=== PATIENT | male | born 1975 | race American Indian/Alaskan Native ===

== ENCOUNTER 2020-09-19 20:49 | Inpatient (IN) | payer OTHER ==
--- NOTE | 2020-09-19 23:23 | Event Note ---
ED Screening Note ED Screening Note: tremors, shakes and nausea, vomiting, diarrhea began today occ abd pain +ETOH daily states he drinks two packs of 24 ounces of beer states last night he drank 6 of them states he last drank at 11 PM PMHx none no allergies to meds +marijuana never has been to rehab This initial assessment/diagnostic orders/clinical plan/treatment(s) is/are subject to change based on patients health status, clinical progression and re- assessment by fellow clinical providers in the ED. Further treatment and workup at subsequent clinical providers discretion. Patient/guardian urged not to elope from the ED as their condition may be serious if not clinically assessed and managed. Initial orders include: labs, UA, UDS
[2020-09-19 23:57] LABS: Bilirubin,Urine NEG (Negative); Blood,Urine SM (Negative); Color,Urine Amber (Yellow); Mucus,Urine 3+ /HPF
[2020-09-19 23:58] LABS: Amphetamine Screen,Urine PRESUMPTIVE NEGATIVE; Benzodiazepines Screen,Urine PRESUMPTIVE NEGATIVE; Cannabinoid Screen,Urine PRESUMPTIVE POSITIVE; Cocaine Screen,Urine PRESUMPTIVE NEGATIVE; Methadone Screen,Urine PRESUMPTIVE NEGATIVE; Opiate Screen,Urine PRESUMPTIVE NEGATIVE
[2020-09-20 00:17] LABS: Hematocrit 39.6 % (35.5-45.6); Hemoglobin 13.1 gm/dl (11.8-15.2); Mean Corpuscular HGB Conc 33 % (32-34); Mean Corpuscular Volume 85 fl (84-94); Platelet Count 108 K/mm3 (140-440); Red Blood Count 4.64 M/mm3 (3.65-5.03); Red Cell Distribution Width 13.8 % (13.2-15.2)
[2020-09-20 00:25] LABS: Alanine Aminotransferase 53 units/L (7-56); Albumin 4.4 g/dL (3.9-5); Blood Urea Nitrogen 5 mg/dL (9-20); Calcium 8.9 mg/dL (8.4-10.2); Hemolysis Index 3
[2020-09-20 00:27] LABS: BUN/Creatinine Ratio 10
[2020-09-20 01:24] LABS: Total Cells Counted 100
[2020-09-20 01:25] LABS: RBC Morphology Normal
[2020-09-20] MEDS ORDERED: SODIUM CHLORIDE 0.9% 1000 ML 1,000 ML IV ONE (03:12)
[2020-09-20] MEDS ORDERED: LORazepam 2 MG/ML VIAL IV PRN ×2 (03:12)
--- NOTE | 2020-09-20 03:17 | Emergency Department Report ---
ED Alcohol HPI - General Chief Complaint: Alcohol Stated Complaint: HANGOVER/TREMORS Time Seen by Provider: 09/19/20 23:21 Source: patient, EMS Mode of arrival: Ambulatory Limitations: No Limitations - History of Present Illness Initial Comments: Patient is a 45-year-old male who presents emergency room with complaints of alcohol withdrawal symptoms. Patient states he has not drank for 3 days. Patient states he drinks every day. Patient states he is feeling tremulous and anxious and shaky, muscle spasms. Patient states he is also having nausea and vomiting. Patient states his symptoms are better with rest. Patient states he is having difficulty controlling his symptoms. Patient states his symptoms are worse with exertion. Patient denies recent travel. Patient denies recent international travel. Patient denies exposure to the novel coronavirus. Patient denies sick contacts. Patient denies fever and chills. Patient denies cough. Patient denies diarrhea. Patient denies coming in contact with anybody with symptoms of the novel coronavirus. MD Complaint: alcohol withdrawal Time Since Last Drink: 3 -: days(s) Chronic Alcohol Use: Yes Previous Visits for Alcohol Intoxication?: Yes Recent Trauma: No Associated Symptoms: nausea, vomiting, tremors. denies: syncope, seizure, hematemesis, melena, depression, suicidality Treatments Prior to Arrival: none - Related Data Allergies Allergy/AdvReac Type Severity Reaction Status Date / Time No Known Allergies Allergy Unverified 09/20/20 03:17 ED Review of Systems ROS: Stated complaint: HANGOVER/TREMORS Other details as noted in HPI Constitutional: denies: chills, fever Eyes: denies: eye pain, eye discharge, vision change ENT: denies: ear pain, throat pain Respiratory: denies: cough, shortness of breath, wheezing Cardiovascular: denies: chest pain, palpitations Endocrine: no symptoms reported Gastrointestinal: denies: abdominal pain, nausea, diarrhea Genitourinary: denies: urgency, dysuria Musculoskeletal: denies: back pain, joint swelling, arthralgia Skin: denies: rash, lesions Neurological: denies: headache, weakness, paresthesias Psychiatric: as per HPI, anxiety. denies: depression Hematological/Lymphatic: denies: easy bleeding, easy bruising ED Past Medical Hx - Past Medical History Previous Medical History?: Yes Additional medical history: ETOH - Surgical History Past Surgical History?: No - Social History Smoking Status: Current Every Day Smoker Substance Use Type: Alcohol ED Physical Exam - General Limitations: No Limitations General appearance: alert, in no apparent distress - Head Head exam: Present: atraumatic, normocephalic - Eye Eye exam: Present: normal appearance - ENT ENT exam: Present: mucous membranes moist - Neck Neck exam: Present: normal inspection - Respiratory Respiratory exam: Present: normal lung sounds bilaterally. Absent: respiratory distress - Cardiovascular Cardiovascular Exam: Present: regular rate, normal rhythm. Absent: systolic murmur, diastolic murmur, rubs, gallop - GI/Abdominal GI/Abdominal exam: Present: soft, normal bowel sounds - Rectal Rectal exam: Present: deferred - Extremities Exam Extremities exam: Present: normal inspection - Back Exam Back exam: Present: normal inspection - Neurological Exam Neurological exam: Present: alert, oriented X3 - Psychiatric Psychiatric exam: Present: anxious - Skin Skin exam: Present: warm, dry, intact, normal color. Absent: rash ED Course Vital Signs 09/19/20 09/20/20 21:27 03:05 Temperature 99.0 F Pulse Rate 83 Respiratory 18 20 Rate Blood Pressure 144/95 O2 Sat by Pulse 98 Oximetry - Reevaluation(s) Reevaluation #1: Patient will be placed on a CIWA protocol. Patient appears to be tremulous. Patient appears to already be going through withdrawal. 09/20/20 03:17 Reevaluation #2: I discussed all results with patient. I discussed plan of care with patient. Patient agrees with plan of care and admission. Patient to be admitted to the hospitalist service. 09/20/20 04:59 - Consultations Consultation #1: Hospitalist consulted for admission. Hospitalist to admit patient. 09/20/20 04:59 ED Medical Decision Making - Lab Data Result diagrams: 09/19/20 23:41 09/19/20 23:41 - Medical Decision Making Patient is a 45-year-old male who presents emergency room with complaints of tremors and muscle spasms anxiety. Patient is a regular drinker. Patient consumes alcohol daily. Patient has not had alcohol for 2 to 3 days. Patient started on a CIWA protocol. Patient scored high on his first evaluation. Patient given Ativan. Patient had labs done which were essentially unremarkable. Patient's alcohol was negative. Patient admitted to the hospital service for further evaluation treatment. Critical care time documented due to the multiple reassessments, prolonged time at the bedside, interpretation of diagnostics and labs. - Differential Diagnosis Alcohol withdrawal, tremors, anxiety, muscle spasm Critical Care Time: Yes Critical care time in (mins) excluding proc time.: 35 Critical care attestation.: If time is entered above; I have spent that time in minutes in the direct care of this critically ill patient, excluding procedure time. Critical Care Time: 35 minutes ED Disposition Clinical Impression: AA (alcohol abuse), Tremor Alcohol withdrawal Qualifiers: Complication of substance-induced condition: uncomplicated Qualified Code(s): F10.230 - Alcohol dependence with withdrawal, uncomplicated Disposition: DC-09 OP ADMIT IP TO THIS HOSP Is pt being admited?: Yes Does the pt Need Aspirin: No Condition: Critical Time of Disposition: 04:53
[2020-09-20] MEDS: LORazepam 2 MG/ML VIAL IV PRN ×3 (03:27→22:17)
[2020-09-20] MEDS ORDERED: THIAMINE 100 MG, FOLIC ACID 1 MG, MULTIPLE VITAMIN INJ, ADULT 10 ML in SODIUM CHLORIDE ... IV ONE (03:45)
[2020-09-20] MEDS ORDERED: MAGNESIUM HYDROXIDE (MOM) ORAL LIQD UDC PO PRN (05:10)
[2020-09-20] MEDS ORDERED: ONDANSETRON 4 MG/2 ML INJ IV PRN (05:10)
--- NOTE | 2020-09-20 05:20 | History and Physical Report ---
History of Present Illness Date of examination: 09/20/20 Date of admission: 09/20/2020 Chief complaint: Alcohol withdrawal symptoms History of present illness: Patient is a 45-year-old -[place] male with known history of for alcohol abuse presenting in the emergency room today with complaints of alcohol withdrawal symptoms. He is known to drink alcohol on a daily basis. Patient last alcohol intake was about 3 days ago. Presents in the emergency room with tremors and appearing anxious and also having muscle spasms. Patient denies any fever or chills, no nausea vomiting, no abdominal pain, no headache or dizziness, no chest pain or shortness of breath. Work-up in the emergency room reveals elevated lipase level 170, AST of 104 otherwise all other labs were unremarkable. Patient is being admitted for alcohol withdrawal. He has been placed on CIWA protocol. Past History Past Medical History: No medical history Past Surgical History: No surgical history Social history: smoking (Current daily smoker), alcohol abuse Family history: no significant family history Medications and Allergies Allergies Allergy/AdvReac Type Severity Reaction Status Date / Time No Known Allergies Allergy Unverified 09/20/20 03:17 Active Meds: Active Medications Heparin Sodium (Porcine) (Heparin 5,000 Unit/1 Ml Vial) 5,000 unit SUB-Q Q8HR GAMAL Thiamine HCl 100 mg/ Folic Acid 1 mg/ Multivitamins/Minerals 10 ml/ Sodium Chloride 1,011.2 mls @ 250 mls/hr IV ONCE ONE Stop: 09/20/20 07:47 Last Admin: 09/20/20 04:03 Dose: 250 mls/hr Documented by: Sodium Chloride (Nacl 0.9% 1000 Ml) 1,000 mls @ 125 mls/hr IV DIRECT GAMAL Lorazepam (Lorazepam 2 Mg/Ml Vial) 2 mg IV Q1HR PRN PRN Reason: CIWA-Ar 8-15 Last Admin: 09/20/20 03:27 Dose: 2 mg Documented by: Lorazepam (Lorazepam 2 Mg/Ml Vial) 4 mg IV Q1HR PRN PRN Reason: CIWA-Ar 16-25 Lorazepam (Lorazepam 2 Mg/Ml Vial) 4 mg IV Q15MIN PRN PRN Reason: CIWA-Ar >25 Magnesium Hydroxide (Magnesium Hydroxide (Mom) Oral Liqd Udc) 30 ml PO Q4H PRN PRN Reason: Constipation Ondansetron HCl (Ondansetron 4 Mg/2 Ml Inj) 4 mg IV Q8H PRN PRN Reason: Nausea And Vomiting Sodium Chloride (Sodium Chloride 0.9% 10 Ml Flush Syringe) 10 ml IV BID GAMAL Sodium Chloride (Sodium Chloride 0.9% 10 Ml Flush Syringe) 10 ml IV PRN PRN PRN Reason: LINE FLUSH Review of Systems Constitutional: no fever, no chills Ears, nose, mouth and throat: no nasal congestion, no sore throat Cardiovascular: no chest pain, no palpitations Respiratory: no cough, no shortness of breath Gastrointestinal: no abdominal pain, no nausea, no vomiting, no diarrhea Genitourinary Male: no dysuria, no hematuria, no flank pain Musculoskeletal: no neck pain, no low back pain Integumentary: no rash, no pruritis Neurological: no headaches, no confusion Psychiatric: no anxiety, no depression Endocrine: no excessive thirst, no polydipsia, no polyuria, no nocturia Exam - Constitutional Vitals: Temp Pulse Resp BP Pulse Ox 99.0 F 83 20 144/95 98 09/19/20 21:27 09/19/20 21:27 09/20/20 03:05 09/19/20 21:27 09/19/20 21:27 General appearance: Present: no acute distress, well-nourished - EENT Eyes: Present: PERRL, EOM intact. Absent: scleral icterus ENT: hearing intact, clear oral mucosa, dentition normal - Neck Neck: Present: supple, normal ROM - Respiratory Respiratory effort: normal Respiratory: bilateral: CTA - Cardiovascular Rhythm: regular Heart Sounds: Present: S1 & S2. Absent: gallop, systolic murmur, diastolic murmur, rub, click - Extremities Extremities: no ischemia, pulses intact, pulses symmetrical, No edema, normal temperature, normal color, Full ROM Peripheral Pulses: within normal limits - Abdominal General gastrointestinal: Present: soft, non-tender, non-distended, normal bowel sounds. Absent: mass - Integumentary Integumentary: Present: clear, warm, dry. Absent: rash - Musculoskeletal Musculoskeletal: strength equal bilaterally - Psychiatric Psychiatric: appropriate mood/affect, intact judgment & insight, memory intact, cooperative - Neurologic Neurologic: CNII-XII intact, no focal deficits, moves all extremities, other (Appears anxious and tremulous) Results - Labs CBC & Chem 7: 09/19/20 23:41 09/19/20 23:41 Labs: Abnormal lab results 09/19/20 09/19/20 09/19/20 Range/Units 23:41 23:41 23:41 Plt Count 108 L (140-440) K/mm3 Monocytes % (Manual) 18.0 H (0.0-7.3) % Lymphocytes # (Manual) 1.0 L (1.2-5.4) K/mm3 Monocytes # (Manual) 0.9 H (0.0-0.8) K/mm3 Chloride 96.2 L (98-107) mmol/L BUN 5 L (9-20) mg/dL Creatinine 0.5 L (0.8-1.3) mg/dL Glucose 105 H (75-100) mg/dL AST 104 H (5-40) units/L Lipase 170 H (13-60) units/L Salicylates < 0.3 L (2.8-20.0) mg/dL Acetaminophen (10.0-30.0) ug/mL 09/19/20 Range/Units 23:41 Plt Count (140-440) K/mm3 Monocytes % (Manual) (0.0-7.3) % Lymphocytes # (Manual) (1.2-5.4) K/mm3 Monocytes # (Manual) (0.0-0.8) K/mm3 Chloride (98-107) mmol/L BUN (9-20) mg/dL Creatinine (0.8-1.3) mg/dL Glucose (75-100) mg/dL AST (5-40) units/L Lipase (13-60) units/L Salicylates (2.8-20.0) mg/dL Acetaminophen 5.0 L (10.0-30.0) ug/mL Assessment and Plan - Patient Problems (1) Alcohol withdrawal Current Visit: Yes Status: Acute Qualifiers: Complication of substance-induced condition: uncomplicated Qualified Code(s): F10.230 - Alcohol dependence with withdrawal, uncomplicated Plan to address problem: Patient placed on CIWA protocol He has been commenced on IV fluid and IV multivitamins with banana bag. (2) Liver enzyme elevation Current Visit: Yes Status: Acute Plan to address problem: Possibly secondary to the alcohol abuse. We will monitor liver enzymes. (3) Tobacco abuse Current Visit: Yes Status: Acute Plan to address problem: Patient counseled on quitting tobacco abuse. Will offer nicotine patch as needed. (4) DVT prophylaxis Current Visit: Yes Status: Acute Plan to address problem: Patient placed on subcutaneous heparin. (5) Full code status Current Visit: Yes Status: Acute
[2020-09-20] MEDS: HEPARIN 5,000 UNIT/1 ML VIAL SUB-Q SCH ×3 (06:23→22:17)
[2020-09-20] MEDS: SODIUM CHLORIDE 0.9% 1000 ML 1,000 ML IV SCH ×2 (06:23→22:16)
[2020-09-20] MEDS ORDERED: FOLIC ACID 1 MG in SODIUM CHLORIDE 0.9% 50 ML IV SCH (10:00)
--- NOTE | 2020-09-20 10:00 | Event Note ---
Date: 09/20/20 Patient seen and examined This is Second visit after midnight Patient is a 45-year-old -[place] male with known history of for alcohol abuse presenting in the emergency room with complaints of alcohol withdrawal symptoms. Work-up in the emergency room reveals elevated lipase level 170, AST of 104 otherwise all other labs were unremarkable. Patient was admitted for alcohol withdrawal and acute pancreatitis. He has been placed on CIWA protocol. vitals stable, will transfer to telemetry Continue to follow clinically with supportive care
[2020-09-20] MEDS: THIAMINE 100 MG, FOLIC ACID 1 MG, MULTIPLE VITAMIN INJ, ADULT 10 ML in SODIUM CHLORIDE ... IV SCH (23:39)
[2020-09-21] MEDS: HEPARIN 5,000 UNIT/1 ML VIAL SUB-Q SCH ×3 (07:01→21:36)
[2020-09-21] MEDS: LORazepam 2 MG/ML VIAL IV PRN (09:13)
[2020-09-21 09:26] LABS: Basophils % (Auto) 0.3 % (0.0-1.8); Eosinophils % (Auto) 0.9 % (0.0-4.3); Hematocrit 32.7 % (35.5-45.6); Hemoglobin 10.5 gm/dl (11.8-15.2); Lymphocytes % (Auto) 30.4 % (13.4-35.0); Mean Corpuscular HGB Conc 32 % (32-34); Mean Corpuscular Volume 86 fl (84-94); Monocytes # (Auto) 0.5 K/mm3 (0.0-0.8); Monocytes % (Auto) 15.7 % (0.0-7.3); Platelet Count 114 K/mm3 (140-440); Red Cell Distribution Width 13.9 % (13.2-15.2)
[2020-09-21 09:33] LABS: Alanine Aminotransferase 28 units/L (7-56); Albumin 2.8 g/dL (3.9-5); Blood Urea Nitrogen 4 mg/dL (9-20); Calcium 7.8 mg/dL (8.4-10.2); Hemolysis Index 9
[2020-09-21 09:35] LABS: BUN/Creatinine Ratio 7; Bilirubin,Direct < 0.2 mg/dL (0-0.2)
[2020-09-21] MEDS: SODIUM CHLORIDE 0.9% 1000 ML 1,000 ML IV SCH (16:53)
--- NOTE | 2020-09-21 17:43 | Progress Note ---
Assessment and Plan Assessment and plan: 45-year-old -[place] male who presents with alcohol intoxication secondary to alcohol binging (1) Alcohol withdrawal Current Visit: Yes Status: Acute Qualifiers: Complication of substance-induced condition: uncomplicated Qualified Code(s): F10.230 - Alcohol dependence with withdrawal, uncomplicated Plan to address problem: Patient placed on CIWA protocol He has been commenced on IV fluid and IV multivitamins with banana bag. Patient has improved, physical therapy to see the patient for ataxic gait and imbalance (2) Liver enzyme elevation Current Visit: Yes Status: Acute Plan to address problem: Possibly secondary to the alcohol abuse. We will monitor liver enzymes. (3) Tobacco abuse Current Visit: Yes Status: Acute Plan to address problem: Patient counseled on quitting tobacco abuse. Nicotine patch (4) DVT prophylaxis Current Visit: Yes Status: Acute Plan to address problem: Patient placed on subcutaneous heparin. (5) Full code status Current Visit: Yes Status: Acute Disposition: Anticipate discharge within the next 24 hours History Interval history: 09/21/2020: Patient seen and examined, states that he is improved with fluids. Continues to have some ataxic gait. Patient can be moved to telemetry. Hospitalist Physical - Physical exam Narrative exam: General appearance no acute distress, well-nourished EENT: PERRL, EOM intact, hearing intact, clear oral mucosa, dentition normal Neck: Present: supple, normal ROM Respiratory: bilateral: CTA, negative: rales, rhonchi, wheezing Cardiovascular: Regular rate/rhythm, Normal S1 & S2. No gallop, rub Extremities: no ischemia, No edema, normal temperature, normal color, Full ROM Abdominal: soft, non-tender, non-distended, normal bowel sounds Integumentary: Present: clear, warm, dry Psychiatric: appropriate mood/affect, intact judgment & insight Neurologic: CNII-XII intact, moves all extremities, ataxic gait, minimal upper extremity tremors, no confusion - Constitutional Vitals: Temp Pulse Resp BP Pulse Ox 100.6 F H 71 24 163/98 99 09/21/20 16:00 09/21/20 17:30 09/21/20 17:30 09/21/20 17:30 09/21/20 17:30 General appearance: Present: no acute distress, well-nourished Results - Labs CBC & Chem 7: 09/21/20 08:55 09/21/20 08:55 Labs: Laboratory Last Values WBC 3.4 K/mm3 (4.5-11.0) L 09/21/20 08:55 RBC 3.80 M/mm3 (3.65-5.03) 09/21/20 08:55 Hgb 10.5 gm/dl (11.8-15.2) L 09/21/20 08:55 Hct 32.7 % (35.5-45.6) L D 09/21/20 08:55 MCV 86 fl (84-94) 09/21/20 08:55 MCH 28 pg (28-32) 09/21/20 08:55 MCHC 32 % (32-34) 09/21/20 08:55 RDW 13.9 % (13.2-15.2) 09/21/20 08:55 Plt Count 114 K/mm3 (140-440) L 09/21/20 08:55 Lymph % (Auto) 30.4 % (13.4-35.0) 09/21/20 08:55 [place] % (Auto) 15.7 % (0.0-7.3) H 09/21/20 08:55 Eos % (Auto) 0.9 % (0.0-4.3) 09/21/20 08:55 Baso % (Auto) 0.3 % (0.0-1.8) 09/21/20 08:55 Lymph # (Auto) 1.0 K/mm3 (1.2-5.4) L 09/21/20 08:55 [place] # (Auto) 0.5 K/mm3 (0.0-0.8) 09/21/20 08:55 Eos # (Auto) 0.0 K/mm3 (0.0-0.4) 09/21/20 08:55 Baso # (Auto) 0.0 K/mm3 (0.0-0.1) 09/21/20 08:55 Add Manual Diff Complete 09/19/20 23:41 Total Counted 100 09/19/20 23:41 Seg Neutrophils % 52.7 % (40.0-70.0) 09/21/20 08:55 Seg Neuts % (Manual) 62.0 % (40.0-70.0) 09/19/20 23:41 Lymphocytes % (Manual) 20.0 % (13.4-35.0) 09/19/20 23:41 Monocytes % (Manual) 18.0 % (0.0-7.3) H 09/19/20 23:41 Nucleated RBC % Not Reportable 09/19/20 23:41 Seg Neutrophils # 1.8 K/mm3 (1.8-7.7) 09/21/20 08:55 Seg Neutrophils # Man 3.0 K/mm3 (1.8-7.7) 09/19/20 23:41 Band Neutrophils # 0.0 K/mm3 09/19/20 23:41 Lymphocytes # (Manual) 1.0 K/mm3 (1.2-5.4) L 09/19/20 23:41 Abs React Lymphs (Man) 0.0 K/mm3 09/19/20 23:41 Monocytes # (Manual) 0.9 K/mm3 (0.0-0.8) H 09/19/20 23:41 Eosinophils # (Manual) 0.0 K/mm3 (0.0-0.4) 09/19/20 23:41 Basophils # (Manual) 0.0 K/mm3 (0.0-0.1) 09/19/20 23:41 Metamyelocytes # 0.0 K/mm3 09/19/20 23:41 Myelocytes # 0.0 K/mm3 09/19/20 23:41 Promyelocytes # 0.0 K/mm3 09/19/20 23:41 Blast Cells # 0.0 K/mm3 09/19/20 23:41 WBC Morphology Not Reportable 09/19/20 23:41 Hypersegmented Neuts Not Reportable 09/19/20 23:41 Hyposegmented Neuts Not Reportable 09/19/20 23:41 Hypogranular Neuts Not Reportable 09/19/20 23:41 Smudge Cells Not Reportable 09/19/20 23:41 Toxic Granulation Not Reportable 09/19/20 23:41 Toxic Vacuolation Not Reportable 09/19/20 23:41 Dohle Bodies Not Reportable 09/19/20 23:41 Pelger-Huet Anomaly Not Reportable 09/19/20 23:41 Fatuma Rods Not Reportable 09/19/20 23:41 Platelet Estimate Not Reportable 09/19/20 23:41 Clumped Platelets Not Reportable 09/19/20 23:41 Plt Clumps, EDTA Not Reportable 09/19/20 23:41 Large Platelets Not Reportable 09/19/20 23:41 Giant Platelets Not Reportable 09/19/20 23:41 Platelet Satelliting Not Reportable 09/19/20 23:41 Plt Morphology Comment Not Reportable 09/19/20 23:41 RBC Morphology Normal 09/19/20 23:41 Dimorphic RBCs Not Reportable 09/19/20 23:41 Polychromasia Not Reportable 09/19/20 23:41 Hypochromasia Not Reportable 09/19/20 23:41 Poikilocytosis Not Reportable 09/19/20 23:41 Anisocytosis Not Reportable 09/19/20 23:41 Microcytosis Not Reportable 09/19/20 23:41 Macrocytosis Not Reportable 09/19/20 23:41 Spherocytes Not Reportable 09/19/20 23:41 Pappenheimer Bodies Not Reportable 09/19/20 23:41 Sickle Cells Not Reportable 09/19/20 23:41 Target Cells Not Reportable 09/19/20 23:41 Tear Drop Cells Not Reportable 09/19/20 23:41 Ovalocytes Not Reportable 09/19/20 23:41 Helmet Cells Not Reportable 09/19/20 23:41 [place] Bodies Not Reportable 09/19/20 23:41 [place] Rings Not Reportable 09/19/20 23:41 [place] Cells Not Reportable 09/19/20 23:41 Bite Cells Not Reportable 09/19/20 23:41 Crenated Cell Not Reportable 09/19/20 23:41 Elliptocytes Not Reportable 09/19/20 23:41 Acanthocytes (Spur) Not Reportable 09/19/20 23:41 Rouleaux Not Reportable 09/19/20 23:41 Hemoglobin C Crystals Not Reportable 09/19/20 23:41 Schistocytes Not Reportable 09/19/20 23:41 Malaria parasites Not Reportable 09/19/20 23:41 Se Bodies Not Reportable 09/19/20 23:41 Hem Pathologist Commnt No 09/19/20 23:41 PT 13.0 Sec. (12.2-14.9) 09/21/20 08:55 INR 1.00 (0.87-1.13) 09/21/20 08:55 Sodium 136 mmol/L (137-145) L 09/21/20 08:55 Potassium 4.0 mmol/L (3.6-5.0) 09/21/20 08:55 Chloride 102.1 mmol/L (98-107) 09/21/20 08:55 Carbon Dioxide 26 mmol/L (22-30) 09/21/20 08:55 Anion Gap 12 mmol/L 09/21/20 08:55 BUN 4 mg/dL (9-20) L 09/21/20 08:55 Creatinine 0.6 mg/dL (0.8-1.3) L 09/21/20 08:55 Estimated GFR > 60 ml/min 09/21/20 08:55 BUN/Creatinine Ratio 7 % 09/21/20 08:55 Glucose 148 mg/dL (75-100) H 09/21/20 08:55 Calcium 7.8 mg/dL (8.4-10.2) L 09/21/20 08:55 Magnesium 1.70 mg/dL (1.7-2.3) 09/20/20 07:13 Total Bilirubin 0.20 mg/dL (0.1-1.2) 09/21/20 08:55 Direct Bilirubin < 0.2 mg/dL (0-0.2) 09/21/20 08:55 Indirect Bilirubin 0.0 mg/dL 09/21/20 08:55 AST 46 units/L (5-40) H 09/21/20 08:55 ALT 28 units/L (7-56) 09/21/20 08:55 Alkaline Phosphatase 71 units/L (35-129) 09/21/20 08:55 Total Creatine Kinase 137 units/L (55-170) 09/19/20 23:41 Total Protein 6.2 g/dL (6.3-8.2) L 09/21/20 08:55 Albumin 2.8 g/dL (3.9-5) L 09/21/20 08:55 Albumin/Globulin Ratio 0.8 % 09/21/20 08:55 Lipase 189 units/L (13-60) H 09/21/20 08:55 Urine Color [place]aitlyn (Yellow) 09/19/20 Unknown Urine Turbidity Slightly-cloudy (Clear) 09/19/20 Unknown Urine pH 5.0 (5.0-7.0) 09/19/20 Unknown Ur Specific [place] 1.026 (1.003-1.030) 09/19/20 Unknown Urine Protein 100 mg/dl mg/dL (Negative) 09/19/20 Unknown Urine Glucose (UA) Neg mg/dL (Negative) 09/19/20 Unknown Urine Ketones Tr mg/dL (Negative) 09/19/20 Unknown Urine Blood Sm (Negative) 09/19/20 Unknown Urine Nitrite Neg (Negative) 09/19/20 Unknown Urine Bilirubin Neg (Negative) 09/19/20 Unknown Urine Urobilinogen 4.0 mg/dL (<2.0) 09/19/20 Unknown Ur Leukocyte Esterase Neg (Negative) 09/19/20 Unknown Urine WBC (Auto) 6.0 /HPF (0.0-6.0) 09/19/20 Unknown Urine RBC (Auto) 5.0 /HPF (0.0-6.0) 09/19/20 Unknown U Epithel Cells (Auto) < 1.0 /HPF (0-13.0) 09/19/20 Unknown Urine Mucus 3+ /HPF 09/19/20 Unknown Salicylates < 0.3 mg/dL (2.8-20.0) L 09/19/20 23:41 Urine Opiates Screen Presumptive negative 09/19/20 Unknown Urine Methadone Screen Presumptive negative 09/19/20 Unknown Acetaminophen 5.0 ug/mL (10.0-30.0) L 09/19/20 23:41 Ur Barbiturates Screen Presumptive negative 09/19/20 Unknown Ur Phencyclidine Scrn Presumptive negative 09/19/20 Unknown Ur Amphetamines Screen Presumptive negative 09/19/20 Unknown U Benzodiazepines Scrn Presumptive negative 09/19/20 Unknown Urine Cocaine Screen Presumptive negative 09/19/20 Unknown U Marijuana (THC) Screen Presumptive positive 09/19/20 Unknown Drugs of Abuse Note Disclamer 09/19/20 Unknown Plasma/Serum Alcohol < 0.01 % (0-0.07) 09/19/20 23:41 [place]/IV: Voiding Method Urinal Active Medications - Current Medications Current Medications: Generic Name Dose Route Start Last Admin Trade Name Freq PRN Reason Stop Dose Admin Heparin Sodium (Porcine) 5,000 unit 09/20/20 06:00 09/21/20 16:53 Heparin 5,000 Unit/1 Ml Vial SUB-Q 5,000 unit Q8HR GAMAL Administration Sodium Chloride 1,000 mls @ 125 mls/hr 09/20/20 05:15 09/21/20 16:53 Nacl 0.9% 1000 Ml IV 125 mls/hr DIRECT GAMAL Administration Thiamine HCl 100 mg/ Folic 1,011.2 mls @ 250 mls/hr 09/20/20 22:00 09/20/20 23:39 Acid 1 mg/ Multivitamins/ IV 250 mls/hr Minerals 10 ml/ Sodium Q24H GAMAL Administration Chloride Lorazepam 2 mg 09/20/20 03:12 09/21/20 09:13 Lorazepam 2 Mg/Ml Vial IV 2 mg Q1HR PRN Administration CIWA-Ar 8-15 Lorazepam 4 mg 09/20/20 03:12 Lorazepam 2 Mg/Ml Vial IV Q1HR PRN CIWA-Ar 16-25 Lorazepam 4 mg 09/20/20 03:12 Lorazepam 2 Mg/Ml Vial IV Q15MIN PRN CIWA-Ar >25 Magnesium Hydroxide 30 ml 09/20/20 05:10 Magnesium Hydroxide (Mom) Oral Liqd Udc PO Q4H PRN Constipation Ondansetron HCl 4 mg 09/20/20 05:10 09/20/20 06:23 Ondansetron 4 Mg/2 Ml Inj IV 4 mg Q8H PRN Administration Nausea And Vomiting Sodium Chloride 10 ml 09/20/20 10:00 09/20/20 22:17 Sodium Chloride 0.9% 10 Ml Flush Syringe IV 10 ml BID GAMAL Administration Sodium Chloride 10 ml 09/20/20 05:10 Sodium Chloride 0.9% 10 Ml Flush Syringe IV PRN PRN LINE FLUSH Nutrition/Malnutrition Assess - Dietary Evaluation Nutrition/Malnutrition Findings: Nutrition Notes Start: 09/20/20 09:31 Freq: Status: Active Protocol: Document 09/21/20 12:51 CW (Rec: 09/21/20 13:05 CW [id number]) Nutrition Notes Need for Assessment generated from: MD Order Initial or Follow up Assessment Other Pertinent Diagnosis ETOH abuse and withdrawl Current Diet Regular diet Labs/Tests N a 136 BG 148 Pertinent Medications Thiamine, Folic Acid/ Multivitamins Height 5 ft 11 in Weight 64 kg Bromide Body Weight (kg) 78.18 BMI 19.6 Intake Prior to Admission Poor Weight change and time frame 5% weight loss x 1 month Weight Status Appropriate Subjective/Other Information F/U for diet education. Pt denied need for general nutrition diet education and denied having questions related to healthy eating. Pt denies family hx of renal, heart, or diabetes. Pt reports weight loss of 5% x 30 days d /t poor appetite. Pt reports appetite is improving. Pt ate 75% of lunch. Burn Absent Trauma Absent GI Symptoms None Food Allergy No Minimum of two criteria No physical signs of malnutrition #1 Nutrition Diagnosis Inadequate oral intake Etiology poor appetite As Evidenced by Signs and Symptoms Pt reports significant weight loss x 30 days. Is patient on ventilator? No Is Patient Ambulatory and/or Out of Bed Yes REE-([facility]-ambulatory/OOB) [ 2003.769 [id number]] Calculation Used for Recommendations [facility] Additional Notes protein needs:51 - 64 g(0.8 - 1 g/kgBW) fluid needs: 1 ml/kcal Nutrition Intervention Change Diet Order: Continue current diet as ordered Teaching Recipient Patient Learning Readiness Pt refusal Teaching Methods Demonstration Barriers to Learning No Barriers RD phone number provided Yes Patient aware of follow up options Yes Goal #1 Meet at least 75% of kcal and protein needs via PO Goal #2 Weight stablization Anticipated Discharge Needs: Regular Diet Follow-Up By: 10/03/20 Additional Comments F/U for stable intakes and stable weight
[2020-09-21] MEDS: THIAMINE 100 MG, FOLIC ACID 1 MG, MULTIPLE VITAMIN INJ, ADULT 10 ML in SODIUM CHLORIDE ... IV SCH (23:17)
[2020-09-22] MEDS: HEPARIN 5,000 UNIT/1 ML VIAL SUB-Q SCH (05:36)
[2020-09-22 06:06] LABS: Alanine Aminotransferase 25 units/L (7-56); Albumin 3.4 g/dL (3.9-5); Blood Urea Nitrogen 4 mg/dL (9-20); Calcium 8.3 mg/dL (8.4-10.2); Hemolysis Index 3
[2020-09-22 06:21] LABS: BUN/Creatinine Ratio 8
--- NOTE | 2020-09-22 08:51 | Discharge Summary ---
Providers - Providers Date of Admission: 09/20/20 04:59 Date of discharge: 09/22/20 Attending physician: TRUNG FAIR MD 09/20/20 05:10 Consult to Dietitian/Nutrition [CONS] Routine Physician Instructions: Reason For Exam: Reason for Consult: Diet education 09/21/20 10:58 Physical Therapy Evaluation and Treat [CONS] Routine Comment: Reason For Exam: ataxia Primary care physician: [facility] Hospitalization Reason for admission: Alcohol intoxication Condition: Good Hospital course: 45-year-old -[place] male who presents with alcohol intoxication secondary to alcohol binging. Patient completely resolved from his symptoms, was walking around the room, eating breakfast, states that he felt good for discharge. (1) Alcohol withdrawal Current Visit: Yes Status: Acute Qualifiers: Complication of substance-induced condition: uncomplicated Qualified Code(s): F10.230 - Alcohol dependence with withdrawal, uncomplicated Plan to address problem: Patient placed on CIWA protocol Patient placed on a banana bag Patient is completely resolved symptoms, advised to stop drinking alcohol (2) Liver enzyme elevation Current Visit: Yes Status: Acute Plan to address problem: Possibly secondary to the alcohol abuse. Improving and downtrending, advised stop drinking alcohol (3) Tobacco abuse Current Visit: Yes Status: Acute Plan to address problem: Patient counseled on quitting tobacco abuse. Nicotine patch Disposition: - TO HOME OR SELFCARE Final Discharge Diagnosis (Prints w/discharge instructions): Alcohol withdrawal. Transaminitis. Nicotine abuse Time spent for discharge: 35 minutes Core Measure Documentation - Palliative Care Palliative Care/ Comfort Measures: Not Applicable - Core Measures Any of the following diagnoses?: none Exam - Physical Exam Narrative exam: General appearance no acute distress, well-nourished EENT: PERRL, EOM intact, hearing intact, clear oral mucosa, dentition normal Neck: Present: supple, normal ROM Respiratory: bilateral: CTA, negative: rales, rhonchi, wheezing Cardiovascular: Regular rate/rhythm, Normal S1 & S2. No gallop, rub Extremities: no ischemia, No edema, normal temperature, normal color, Full ROM Abdominal: soft, non-tender, non-distended, normal bowel sounds Integumentary: Present: clear, warm, dry Psychiatric: appropriate mood/affect, intact judgment & insight Neurologic: CNII-XII intact, moves all extremities, normal gait, no tremors in upper extremities - Constitutional Vitals: Temp Pulse Resp BP Pulse Ox 99.4 F 76 16 140/96 98 09/22/20 05:04 09/22/20 05:04 09/22/20 05:04 09/22/20 05:04 09/22/20 05:04 Plan Activity: no restrictions Diet: regular Follow up with: PRIMARY CARE, [Primary Care Provider] - 7 Days
[2020-09-22 09:47] VITALS: BP 142/96
== END 2020-09-22 11:41 | disposition home or self-care (01) | DRG 897 ==
LOC: ED 20:49 → IMCU 09-20 04:59 → 4A 09-21 21:06
PROVIDERS: ADMIT Internal Medicine Geriatric Medicine; ATTEND Family Medicine
DX: F10.230 Alcohol dependence with withdrawal, uncomplicated (principal); F17.200 Nicotine dependence, unspecified, uncomplicated; R74.01 Elevation of levels of liver transaminase levels; Z71.6 Tobacco abuse counseling
CPT/HCPCS: 36415; 80048; 80053; 80076; 80307; 80320; 81001; 82550; 83690; 83735; 85007; 85025; 85610; 96365; 96375; G0378; G0480; J1644; J2060; J2405; J3411; J7030

== ENCOUNTER 2021-10-18 20:16 | Emergency (ER) | payer SELFPAY ==
[2021-10-19] MEDS ORDERED: ONDANSETRON 4 MG/2 ML INJ IV ONE (12:40)
[2021-10-19] MEDS ORDERED: HYDROmorphone 1 MG/1 ML INJ IV ONE ×2 (12:40→13:37)
[2021-10-19] MEDS ORDERED: THIAMINE 100 MG, FOLIC ACID 1 MG, MULTIPLE VITAMIN INJ, ADULT 10 ML in SODIUM CHLORIDE ... IV ONE (12:41)
[2021-10-19] MEDS ORDERED: SODIUM CHLORIDE 0.9% 1000 ML 1,000 ML IV ONE (12:41)
[2021-10-19] MEDS ORDERED: LORazepam 2 MG/ML VIAL IV PRN ×3 (12:41)
--- NOTE | 2021-10-19 12:43 | Emergency Department Report ---
<TAMIE RICE - Last Filed: 10/19/21 14:10> ED General Adult HPI - General Chief complaint: Abdominal Pain Stated complaint: ABD PAIN Time Seen by Provider: 10/19/21 12:33 Source: patient, EMS ( EMS documentation not available at time of chart dictation ), RN notes reviewed, old records reviewed Mode of arrival: Stretcher Limitations: No Limitations - History of Present Illness Initial comments: The patient was evaluated in the emergency department for symptoms described in the history of present illness. He/she was evaluated in the context of the global COVID-19 pandemic, which necessitated consideration that the patient might be at risk for infection with the virus that causes COVID-19. Institutional protocols and algorithms that pertain to the evaluation of patients at risk for COVID-19 are in a state of rapid change based on information released by regulatory bodies including the CDC and federal and state organizations. These policies and algorithms were followed during the patient's care in the emergency department. Please note that these policies, procedures and recommendations changed on a rapid basis. This patient is a pleasant and cooperative overall anxious 46-year-old gentleman, with a history of daily alcohol abuse and withdrawal, who presents to the department with a complaint of diffuse abdominal cramping, pain, nausea, vomiting and tremors. He is not homicidal or suicidal. No headache, neck pain, chest pain, hematemesis of bright red blood per rectum. Not experiencing hallucinations. No urinary symptoms, no testicular pain. Abdominal pain is diffuse, sharp throbbing crampy and aching, increases with palpation, vomiting, and decreases with rest. It is described as generalized. Last alcoholic beverages yesterday -: Gradual, days(s) Location: abdomen Quality: other Consistency: other Improves with: other Worsens with: other - Related Data Previous Rx's Medication Instructions Recorded Last Taken Type Acetaminophen [Non-Aspirin Extra 500 mg PO Q6HR PRN #30 tablet 10/19/21 Unknown Rx Strength] Metoclopramide [Reglan] 10 mg PO QID PRN #30 tablet 10/19/21 Unknown Rx Multivitamin with Folic Acid [Cvs 400 mcg PO QDAY #30 tablet 10/19/21 Unknown Rx One Daily Essential Tablet] Pantoprazole [Protonix TAB] 20 mg PO QDAY #30 tablet. 10/19/21 Unknown Rx chlordiazePOXIDE [Librium] 25 mg PO Q6H PRN #25 capsule 10/19/21 Unknown Rx Allergies Allergy/AdvReac Type Severity Reaction Status Date / Time No Known Allergies Allergy Unverified 09/20/20 03:17 ED Review of Systems Constitutional: malaise, weakness. denies: fever Eyes: denies: eye discharge ENT: denies: epistaxis Respiratory: denies: cough Cardiovascular: palpitations. denies: chest pain Gastrointestinal: abdominal pain, nausea, vomiting. denies: melena, hematochezia Genitourinary: denies: dysuria Musculoskeletal: myalgia Neurological: weakness Psychiatric: anxiety. denies: homicidal thoughts, suicidal thoughts ED Past Medical Hx - Past Medical History Previous Medical History?: Yes Additional medical history: ETOH - Surgical History Past Surgical History?: No - Social History Smoking Status: Current Every Day Smoker Substance Use Type: Alcohol - Medications Home Medications: Home Medications Medication Instructions Recorded Confirmed Last Taken Type Acetaminophen [Non-Aspirin Extra 500 mg PO Q6HR PRN #30 tablet 10/19/21 Unknown Rx Strength] Metoclopramide [Reglan] 10 mg PO QID PRN #30 tablet 10/19/21 Unknown Rx Multivitamin with Folic Acid [Cvs 400 mcg PO QDAY #30 tablet 10/19/21 Unknown Rx One Daily Essential Tablet] Pantoprazole [Protonix TAB] 20 mg PO QDAY #30 tablet. 10/19/21 Unknown Rx chlordiazePOXIDE [Librium] 25 mg PO Q6H PRN #25 capsule 10/19/21 Unknown Rx ED Physical Exam - General Limitations: No Limitations General appearance: alert, anxious, in distress - Head Head exam: Present: atraumatic, normocephalic - Eye Eye exam: Present: normal appearance, EOMI. Absent: nystagmus - ENT ENT exam: Present: normal orophraynx, mucous membranes dry, normal external ear exam, other (Tongue fasciculations noted) - Neck Neck exam: Present: normal inspection, full ROM. Absent: tenderness, meningismus - Respiratory Respiratory exam: Present: normal lung sounds bilaterally. Absent: respiratory distress, wheezes, rales, rhonchi, stridor, decreased breath sounds - Cardiovascular Cardiovascular Exam: Present: normal rhythm, tachycardia, normal heart sounds. Absent: bradycardia, irregular rhythm, systolic murmur, diastolic murmur, rubs, gallop - GI/Abdominal GI/Abdominal exam: Present: soft, tenderness, other (There is diffuse abdominal tenderness, with no significant rebound or guarding). Absent: distended, gu arding, rebound, rigid, pulsatile mass - Rectal Rectal exam: Present: deferred - Extremities Exam Extremities exam: Present: normal inspection, full ROM, other (2+ pulses noted in the bilateral upper and lower extremities. There is no palpable cord. negative Homans sign. Muscular compartments are soft. The pelvis is stable.). Absent: pedal edema, calf tenderness - Back Exam Back exam: Present: normal inspection. Absent: tenderness, CVA tenderness (R), CVA tenderness (L), paraspinal tenderness, vertebral tenderness - Neurological Exam Neurological exam: Present: alert, oriented X3, other (No facial droop. Tongue midline. Extraocular movements intact bilaterally. Facial sensation intact to light touch in V1, V2, V3 distribution bilaterally. 5 and a 5 strength in 4 extremities. Sensation intact to light touch in 4 extremities.). Absent: motor sensory deficit - Psychiatric Psychiatric exam: Present: anxious. Absent: homicidal ideation, suicidal ideation - Skin Skin exam: Present: warm, dry, intact, normal color. Absent: rash ED Course - Reevaluation(s) Reevaluation #1: 10/19/21 13:13 Differential diagnosis, including but not limited to: Pancreatitis, alcoholic gastritis, alcohol dependence/withdrawal, electrolyte derangement, abdominal wall strain/sprain Assessment and plan: 46-year-old gentleman with alcohol dependence and withdrawal, presenting with diffuse abdominal pain, nausea vomiting, and alcohol withdrawal. He is not homicidal or suicidal. He is awake, alert, oriented, sober and of sound mind. He exhibits decision-making capacity. He does not meet criteria for 1013 hold or involuntary confinement. Place patient on director nursing service. Treat symptoms aggressively, and start patient on alcohol withdrawal protocol. Obtain CT scan of the abdomen pelvis and appropriate laboratory studies. Reassess. Patient inquiring regarding alcohol detox. Have counseled patient that we will reassess after initial diagnostic studies have resulted. 10/19/21 13:52 Feeling improved. Watching videos on his cell phone. Laboratory studies reviewed and appreciated. Awaiting CT scan abdomen pelvis. 10/19/21 14:10 The patient is feeling improved. Care will be transferred to the oncoming ER physician, Dr. Kelly, to follow-up on CT scan abdomen pelvis and arrange for final reassessment. Should no acute findings be noted, we would consider this patient suitable for discharge with outpatient follow-up. Presuming he is ready for discharge, I have written him for appropriate prescriptions, and outpatient resources to follow-up with for detox. Blood alcohol level of 0.12 is reviewed and appreciated here in the department, however, this patient is clinically sober, and not clinically intoxicated. His decision-making is not impaired at this time. - Pulse Oximetry Interpretation Digit-Finger Initial Pulse Oximetry Readin O2 Sat by Pulse Oximetry: 99 Actions Taken: none ED Medical Decision Making - Lab Data Result diagrams: 10/19/21 12:50 10/19/21 12:50 Vital Signs 10/18/21 20:30 Temperature 98 F Pulse Rate 100 H Respiratory 18 Rate Blood Pressure 140/100 O2 Sat by Pulse 100 Oximetry Lab Results 10/19/21 10/19/21 10/19/21 Range/Units 12:50 12:50 12:50 WBC 7.3 (4.5-11.0) K/mm3 RBC 4.26 (3.65-5.03) M/mm3 Hgb 12.0 (11.8-15.2) gm/dl Hct 37.4 (35.5-45.6) % MCV 88 (84-94) fl MCH 28 (28-32) pg MCHC 32 (32-34) % RDW 13.7 (13.2-15.2) % Plt Count 202 (140-440) K/mm3 Lymph % (Auto) 24.6 (13.4-35.0) % Patrick % (Auto) 4.4 (0.0-7.3) % Eos % (Auto) 0.1 (0.0-4.3) % Baso % (Auto) 0.4 (0.0-1.8) % Lymph # (Auto) 1.8 (1.2-5.4) K/mm3 Patrick # (Auto) 0.3 (0.0-0.8) K/mm3 Eos # (Auto) 0.0 (0.0-0.4) K/mm3 Baso # (Auto) 0.0 (0.0-0.1) K/mm3 Seg Neutrophils % 70.5 H (40.0-70.0) % Seg Neutrophils # 5.2 (1.8-7.7) K/mm3 PT 12.6 (12.2-14.9) Sec. INR 0.86 L (0.87-1.13) Sodium 137 (137-145) mmol/L Potassium 4.0 (3.6-5.0) mmol/L Chloride 97.5 L (98-107) mmol/L Carbon Dioxide 23 (22-30) mmol/L Anion Gap 21 mmol/L BUN 10 (9-20) mg/dL Creatinine 0.6 L (0.8-1.3) mg/dL Estimated GFR > 60 ml/min BUN/Creatinine Ratio 17 % Glucose 105 H (75-100) mg/dL Calcium 9.4 (8.4-10.2) mg/dL Magnesium 2.00 (1.7-2.3) mg/dL Total Bilirubin 0.20 (0.1-1.2) mg/dL Direct Bilirubin < 0.2 (0-0.2) mg/dL Indirect Bilirubin 0.0 mg/dL AST 35 (5-40) units/L ALT 20 (7-56) units/L Alkaline Phosphatase 79 (35-129) units/L Total Protein 8.1 (6.3-8.2) g/dL Albumin 4.6 (3.9-5) g/dL Albumin/Globulin Ratio 1.3 % Lipase 23 (13-60) units/L Salicylates (2.8-20.0) mg/dL Acetaminophen (10.0-30.0) ug/mL 10/19/21 10/19/21 Range/Units 12:50 12:50 WBC (4.5-11.0) K/mm3 RBC (3.65-5.03) M/mm3 Hgb (11.8-15.2) gm/dl Hct (35.5-45.6) % MCV (84-94) fl MCH (28-32) pg MCHC (32-34) % RDW (13.2-15.2) % Plt Count (140-440) K/mm3 Lymph % (Auto) (13.4-35.0) % Patrick % (Auto) (0.0-7.3) % Eos % (Auto) (0.0-4.3) % Baso % (Auto) (0.0-1.8) % Lymph # (Auto) (1.2-5.4) K/mm3 Patrick # (Auto) (0.0-0.8) K/mm3 Eos # (Auto) (0.0-0.4) K/mm3 Baso # (Auto) (0.0-0.1) K/mm3 Seg Neutrophils % (40.0-70.0) % Seg Neutrophils # (1.8-7.7) K/mm3 PT (12.2-14.9) Sec. INR (0.87-1.13) Sodium (137-145) mmol/L Potassium (3.6-5.0) mmol/L Chloride (98-107) mmol/L Carbon Dioxide (22-30) mmol/L Anion Gap mmol/L BUN (9-20) mg/dL Creatinine (0.8-1.3) mg/dL Estimated GFR ml/min BUN/Creatinine Ratio % Glucose (75-100) mg/dL Calcium (8.4-10.2) mg/dL Magnesium (1.7-2.3) mg/dL Total Bilirubin (0.1-1.2) mg/dL Direct Bilirubin (0-0.2) mg/dL Indirect Bilirubin mg/dL AST (5-40) units/L ALT (7-56) units/L Alkaline Phosphatase (35-129) units/L Total Protein (6.3-8.2) g/dL Albumin (3.9-5) g/dL Albumin/Globulin Ratio % Lipase (13-60) units/L Salicylates < 0.3 L (2.8-20.0) mg/dL Acetaminophen 5.0 L (10.0-30.0) ug/mL - EKG Data -: EKG Interpreted by Il EKG shows normal: sinus rhythm Rate: normal - EKG Data 10/19/21 13:17 The EKG is interpreted at 13: 10 Sinus rhythm, 88 bpm. Normal axis, normal P wave axis, high left ventricular voltage, motion artifact, QTC 4 4 6 ms. This is an abnormal EKG. This is not a STEMI. - Radiology Data Radiology results: pending ED Disposition Clinical Impression: Fatty liver Abdominal pain Qualifiers: Abdominal location: unspecified location Qualified Code(s): R10.9 - Unspecified abdominal pain Disposition: 01 HOME / SELF CARE / HOMELESS Condition: Good Instructions: Abdominal Pain, Adult, [id number], Fatty Liver Disease Additional Instructions: Avoid consumption of alcohol, tobacco, smoke products, heavy and spicy foods, Motrin, ibuprofen, Naprosyn, Aleve. Please take the prescribed medications as needed and directed. Follow-up with outpatient resources that have been provided to the patient for detoxification. Do not take metformin medication for the next 2 days, if patient takes this medication. Follow-up with an outpatient primary care doctor or therapist within the next week. Please return to the emergency room right away with new pain, worsened pain, migration of pain, projectile vomiting, change in mental status, confusion, inability tolerate liquid feeds, new, worsened or different symptoms not present on the initial emergency room evaluation Prescriptions: Multivitamin with Folic Acid [Cvs One Daily Essential Tablet] 400 mcg PO QDAY #30 tablet chlordiazePOXIDE [Librium] 25 mg PO Q6H PRN #25 capsule PRN Reason: Alcohol Withdrawal Acetaminophen [Non-Aspirin Extra Strength] 500 mg PO Q6HR PRN #30 tablet PRN Reason: Pain , Severe (7-10) Pantoprazole [Protonix TAB] 20 mg PO QDAY #30 tablet. Metoclopramide [Reglan] 10 mg PO QID PRN #30 tablet PRN Reason: Nausea Referrals: [facility] [Outside] - 3-5 Days [facility] [Outside] - 3-5 Days [facility] [Provider Group] - 3-5 Days Forms: Work/School Release Form(ED) <LINDA KELLY - Last Filed: 10/19/21 20:03> ED Review of Systems ROS: Stated complaint: ABD PAIN Other details as noted in HPI ED Course Vital Signs 10/18/21 10/19/21 10/19/21 20:30 13:16 13:31 Temperature 98 F Pulse Rate 100 H Respiratory 18 Rate Blood Pressure 140/100 142/82 O2 Sat by Pulse 100 96 97 Oximetry O2 Sat by Pulse Oximetry [ Digit-Finger] 10/19/21 10/19/21 10/19/21 13:45 14:01 14:11 Temperature Pulse Rate Respiratory Rate Blood Pressure 142/82 139/83 O2 Sat by Pulse 98 98 Oximetry O2 Sat by Pulse 99 Oximetry [ Digit-Finger] 10/19/21 10/19/21 10/19/21 14:15 14:30 14:46 Temperature Pulse Rate Respiratory Rate Blood Pressure 139/83 139/83 139/83 O2 Sat by Pulse 99 98 98 Oximetry O2 Sat by Pulse Oximetry [ Digit-Finger] 10/19/21 10/19/21 10/19/21 15:00 15:16 15:30 Temperature Pulse Rate Respiratory Rate Blood Pressure 130/79 130/79 130/79 O2 Sat by Pulse 98 98 99 Oximetry O2 Sat by Pulse Oximetry [ Digit-Finger] 10/19/21 10/19/21 10/19/21 16:22 16:30 16:49 Temperature Pulse Rate Respiratory Rate Blood Pressure 155/93 155/93 134/86 O2 Sat by Pulse 98 98 Oximetry O2 Sat by Pulse Oximetry [ Digit-Finger] 10/19/21 17:50 Temperature Pulse Rate Respiratory Rate Blood Pressure 114/75 O2 Sat by Pulse Oximetry O2 Sat by Pulse Oximetry [ Digit-Finger] - Reevaluation(s) Reevaluation #2: 10/19/21 20:00 CT abd/pel did not show an acute findings. Please see radiology review for details. ED Medical Decision Making - Lab Data Result diagrams: 10/19/21 12:50 10/19/21 12:50 - Radiology Data FINDINGS: Lungs/bones: There is minimal left basilar atelectasis with otherwise clear lungs. Degenerative changes are present in the spine and pelvis with nothing acute. Abdomen/pelvis: There is hepatic steatosis and mild hepatomegaly. The gallbladder, spleen, pancreas, right kidney, and proximal GI tract appear unremarkable. Tiny simple cyst in the upper pole of the left kidney. Urinary bladder and prostate appear unremarkable with no pelvic free fluid. No acute colonic abnormality identified. The appendix is normal. IMPRESSION: 1. No acute abnormality identified. 2. Incidental findings as above. Critical care attestation.: If time is entered above; I have spent that time in minutes in the direct care of this critically ill patient, excluding procedure time. ED Disposition Is pt being admited?: No Does the pt Need Aspirin: No Time of Disposition: 20:03
[2021-10-19] MEDS ORDERED: PANTOPRAZOLE 40 MG INJ IV ONE (13:20)
[2021-10-19 13:27] LABS: Basophils % (Auto) 0.4 % (0.0-1.8); Eosinophils % (Auto) 0.1 % (0.0-4.3); Hematocrit 37.4 % (35.5-45.6); Lymphocytes # (Auto) 1.8 K/mm3 (1.2-5.4); Lymphocytes % (Auto) 24.6 % (13.4-35.0); Mean Corpuscular HGB Conc 32 % (32-34); Mean Corpuscular Volume 88 fl (84-94); Monocytes # (Auto) 0.3 K/mm3 (0.0-0.8); Monocytes % (Auto) 4.4 % (0.0-7.3); Platelet Count 202 K/mm3 (140-440); Red Blood Count 4.26 M/mm3 (3.65-5.03); Red Cell Distribution Width 13.7 % (13.2-15.2)
[2021-10-19 13:47] LABS: Alanine Aminotransferase 20 units/L (7-56); Albumin 4.6 g/dL (3.9-5); Blood Urea Nitrogen 10 mg/dL (9-20); Calcium 9.4 mg/dL (8.4-10.2); Hemolysis Index 2
[2021-10-19 13:50] LABS: INR 0.86 (0.87-1.13)
[2021-10-19 13:51] LABS: BUN/Creatinine Ratio 17; Bilirubin,Direct < 0.2 mg/dL (0-0.2)
--- NOTE | 2021-10-19 17:40 | Cat Scan Report ---
CT ABDOMEN AND PELVIS WITH CONTRAST HISTORY: acute abd pain n/v. COMPARISON: None. TECHNIQUE: CT images of the abdomen and pelvis were obtained following administration of intravenous contrast. All CT scans at this location are performed using CT dose reduction for ALARA by means of automated exposure control. CONTRAST: 100 ml of intravenous contrast administered. FINDINGS: Lungs/bones: There is minimal left basilar atelectasis with otherwise clear lungs. Degenerative sol ges are present in the spine and pelvis with nothing acute. Abdomen/pelvis: There is hepatic steatosis and mild hepatomegaly. The gallbladder, spleen, pancreas, right kidney, and proximal GI tract appear unremarkable. Tiny simple cyst in the upper pole of the left kidney. Urinary bladder and prostate appear unremarkable with no pelvic free fluid. No acute colonic abnormal ity identified. The appendix is normal. IMPRESSION: 1. No acute abnormality identified. 2. Incidental findings as above. Signer Name: Dipak Richardson MD Signed: 10/19/2021 5:36 PM Workstation Name: [id number]
[2021-10-19 20:49] VITALS: BP 116/71
--- NOTE | 2021-10-20 14:04 | Electrocardiograph Report ---
[facility] Test Date: 2021-10-19 Test Time: 13:10:01 Pat Name: ANGELIKA BUENO Department: Room: Gender: M [employer]: GP : 1975 Requested By: TAMIE RICE Order Number: [id number] Reading MD: Ozzie Sparrow Measurements Intervals [place] Rate: 88 P: 49 HI: 186 QRS: 46 QRSD: 83 T: 63 QT: 369 QTc: 446 Interpretive Statements Sinus rhythm Probable left atrial enlargement Consider anteroseptal infarct ST elevation, consider inferior injury No previous ECG available for comparison Electronically Signed On 10-20-2021 14:03:50 EDT by Ozzie Sparrow
== END 2021-10-19 20:50 | disposition home or self-care (01) ==
LOC: ED 20:16
DX: R10.9 Unspecified abdominal pain (principal); K76.0 Fatty (change of) liver, not elsewhere classified; F17.200 Nicotine dependence, unspecified, uncomplicated; Z79.899 Other long term (current) drug therapy
CPT/HCPCS: 36415; 74177; 80048; 80076; 83690; 83735; 85025; 85610; 93005; 96365; 96375; 99284; C9113; J1170; J2060; J2405; J3411; J3490; J7030; Q9967; 80320; G0480